=== PATIENT | female | born 1980 | race Hispanic/Latino ===

== ENCOUNTER 2020-08-27 16:03 | Emergency (ER) | payer MEDICAID ==
[2020-08-27] MEDS ORDERED: LACTATED RINGERS 2,000 ML IV ONE (17:33)
--- NOTE | 2020-08-27 17:35 | Emergency Department Report ---
ED General Adult HPI - General Chief complaint: Medical Clearance Stated complaint: im fine, i just want to go home PUI?: No Time Seen by Provider: 08/27/20 17:22 Source: patient, EMS ( EMS documentation not available at time of chart dictation ), RN notes reviewed, old records reviewed Mode of arrival: Stretcher Limitations: No Limitations - History of Present Illness Initial comments: The patient was evaluated in the emergency department for symptoms described in the history of present illness. He/she was evaluated in the context of the global COVID-19 pandemic, which necessitated consideration that the patient might be at risk for infection with the virus that causes COVID-19. Institutional protocols and algorithms that pertain to the evaluation of patients at risk for COVID-19 are in a state of rapid change based on information released by regulatory bodies including the CDC and federal and state organizations. These policies and algorithms were followed during the patient's care in the emergency department. Please note that these policies, procedures and recommendations changed on a rapid basis. The patient is a pleasant 39-year-old female. She is not known to myself previously. She has a history of bipolar, DVT, hypertension, currently on Xarelto, also reportedly has a history of tobacco abuse, cellulitis, facial cellulitis, and phentermine abuse, dental abscess. The patient is recently discharged from [facility], where she was admitted to [facility] for oral maxillofacial surgery intervention, and taken to the operating room for incision and drainage on right submandibular spa ce, as well as extraction of nonrestorable carious tooth #31. She left [place] on August 19. She has had multiple evaluations at the aforementioned hospital, and is currently taking Keflex, and clindamycin. She was discharged from her medical facility on a 1012, and was going to a local psychiatric facility, where she was diverted because of reported low blood pressure. The patient herself tells me that she is thirsty. She denies headache, neck pain, chest pain, abdominal pain, shortness of breath. She tells me that she is not homicidal suicidal. She has mild postoperative pain over her surgical site. She tells me that she was sent here "because of low blood pressure." She has chronic shoulder pain which is not a new, worsened or different over the past few months, but otherwise denies additional injuries and acute complaints. She states she would like to be taken off of her 1013, and sent home. The patient is asking for apple juice currently. Includes medications include Abilify, aspirin, Keflex, clindamycin, metoprolol, Flagyl, and Xarelto. -: This afternoon Radiation: other Quality: other Consistency: other Improves with: other Worsens with: other Associated Symptoms: other - Related Data Home Medications Medication Instructions Recorded Confirmed Last Taken ARIPiprazole [Abilify] 20 mg PO QDAY 08/28/20 08/28/20 Unknown Aspirin [Adult Aspirin] 81 mg PO QDAY 08/28/20 08/28/20 Unknown Metoprolol Tartrate 25 mg PO BID 08/28/20 08/28/20 Unknown cephALEXin [Keflex] 500 mg PO QID 08/28/20 08/28/20 Unknown clindamycin HCL [Clindamycin HCl] 300 mg PO TID 08/28/20 08/28/20 Unknown clonazePAM [Klonopin] 1 mg PO TID 08/28/20 08/28/20 Unknown metroNIDAZOLE [Flagyl] 500 mg PO Q8HR 08/28/20 08/28/20 Unknown Previous Rx's Medication Instructions Recorded Last Taken Type Aspirin [Adult Aspirin] 81 mg PO QDAY #30 tablet. 08/28/20 Unknown Rx Clindamycin [Clindamycin CAP] 300 mg PO Q8H #4 cap 08/28/20 Unknown Rx Rivaroxaban [Xarelto] 10 mg PO QDAY #30 tab 08/28/20 Unknown Rx metroNIDAZOLE [Flagyl] 500 mg PO Q8HR #4 tablet 08/28/20 Unknown Rx Allergies Allergy/AdvReac Type Severity Reaction Status Date / Time azithromycin AdvReac Unknown Verified 08/27/20 18:29 Penicillins AdvReac Unknown Verified 08/27/20 18:29 Sulfa (Sulfonamide AdvReac Unknown Verified 08/27/20 18:29 Antibiotics) ED Review of Systems ROS: Stated complaint: LBP Other details as noted in HPI Constitutional: other (Denies loss of taste and smell). denies: fever Eyes: denies: eye discharge ENT: dental pain (Chronic dental pain) Respiratory: denies: cough, shortness of breath Cardiovascular: denies: chest pain Gastrointestinal: denies: abdominal pain Genitourinary: denies: dysuria Musculoskeletal: arthralgia (Chronic right-sided shoulder pain) Neurological: denies: headache Psychiatric: denies: auditory hallucinations, visual hallucinations, homicidal thoughts, suicidal thoughts ED Past Medical Hx - Past Medical History Previous Medical History?: Yes Hx Hypertension: Yes - Social History Smoking Status: Current Every Day Smoker Substance Use Type: None - Medications Home Medications: Home Medications Medication Instructions Recorded Confirmed Last Taken Type ARIPiprazole [Abilify] 20 mg PO QDAY 08/28/20 08/28/20 Unknown History Aspirin [Adult Aspirin] 81 mg PO QDAY 08/28/20 08/28/20 Unknown History Aspirin [Adult Aspirin] 81 mg PO QDAY #30 tablet.dr 08/28/20 Unknown Rx Clindamycin [Clindamycin CAP] 300 mg PO Q8H #4 cap 08/28/20 Unknown Rx Metoprolol Tartrate 25 mg PO BID 08/28/20 08/28/20 Unknown History Rivaroxaban [Xarelto] 10 mg PO QDAY #30 tab 08/28/20 Unknown Rx cephALEXin [Keflex] 500 mg PO QID 08/28/20 08/28/20 Unknown History clindamycin HCL [Clindamycin HCl] 300 mg PO TID 08/28/20 08/28/20 Unknown History clonazePAM [Klonopin] 1 mg PO TID 08/28/20 08/28/20 Unknown History metroNIDAZOLE [Flagyl] 500 mg PO Q8HR 08/28/20 08/28/20 Unknown History metroNIDAZOLE [Flagyl] 500 mg PO Q8HR #4 tablet 08/28/20 Unknown Rx ED Physical Exam - General Limitations: No Limitations General appearance: alert, anxious - Head Head exam: Present: atraumatic, normocephalic - Eye Eye exam: Present: normal appearance, EOMI. Absent: nystagmus - ENT ENT exam: Present: mucous membranes dry, normal external ear exam, other (Patient has poor dentition. There is no stridor. There is no dysphonia. Intraoral surgical site shows no significant redness, pus, streaking, discharge. There is no elevation of the base of the tongue.) - Neck Neck exam: Present: normal inspection, full ROM, other (External postsurgical site appears to be clean, without significant redness, pus or streaking). A bsent: meningismus - Respiratory Respiratory exam: Present: normal lung sounds bilaterally. Absent: respiratory distress, wheezes, rales, rhonchi, stridor, decreased breath sounds - Cardiovascular Cardiovascular Exam: Present: regular rate, normal rhythm, normal heart sounds. Absent: bradycardia, tachycardia, irregular rhythm, systolic murmur, diastolic murmur, rubs, gallop - GI/Abdominal GI/Abdominal exam: Present: soft. Absent: distended, tenderness, guarding, rebound, rigid, pulsatile mass - Extremities Exam Extremities exam: Present: full ROM, other (2+ pulses noted in the bilateral upper and lower extremities. There is no palpable cord. negative Homans sign. Muscular compartments are soft. The pelvis is stable.). Absent: normal inspection (Numerous healed scar castle on upper extremities.), pedal edema, calf tenderness - Back Exam Back exam: Present: normal inspection, full ROM. Absent: tenderness, CVA tenderness (R), CVA tenderness (L), paraspinal tenderness, vertebral tenderness - Neurological Exam Neurological exam: Present: alert, oriented X3, other (No facial droop. Tongue midline. Extraocular movements intact bilaterally. Facial sensation intact to light touch in V1, V2, V3 distribution bilaterally. 5 and a 5 strength in 4 extremities. Sensation intact to light touch in 4 extremities.). Absent: motor sensory deficit - Psychiatric Psychiatric exam: Present: anxious. Absent: homicidal ideation, suicidal ideation - Skin Skin exam: Present: warm, dry, intact, normal color. Absent: rash ED Course Vital Signs 08/27/20 08/27/20 08/27/20 16:24 18:15 18:20 Temperature 98.0 F Pulse Rate 67 Respiratory 17 17 Rate Blood Pressure 93/64 Blood Pressure 128/78 [Right] O2 Sat by Pulse 99 99 Oximetry 08/27/20 08/27/20 08/27/20 19:00 20:20 20:22 Temperature Pulse Rate Respiratory Rate Blood Pressure 90/57 110/76 Blood Pressure 115/74 [Right] O2 Sat by Pulse 100 100 Oximetry 08/28/20 00:10 Temperature 97.6 F Pulse Rate 75 Respiratory 18 Rate Blood Pressure Blood Pressure 103/66 [Right] O2 Sat by Pulse 100 Oximetry - Reevaluation(s) Reevaluation #1: 08/28/20 13:16 Patient does not meet criteria for 1013 hold or involuntary hold. She remains awake, alert, oriented, sober and exhibits decision-making capacity. She is seen by our mental health counselor, who agrees with plan of care. Patient may be discharged medically, and from a psychiatric perspective. If patient would like to seek voluntary evaluation at her local psychiatric facil ities, she may do so. I will defer to her outpatient primary care doctor and/or psychiatrist to pre scribe her Abilify. She can continue aspirin, which I will prescribe, Keflex prescription ended on August 23, clindamycin ends tomorrow, will defer to outpatient primary care to prescribe Klonopin, as well as lactobacillus, Flagyl prescription ends tomorrow, and we will continue Xarelto. Patient states that she wants to go home, and her significant other is here to take her home. 08/28/20 13:17 ED Medical Decision Making - Lab Data Result diagrams: 08/27/20 17:41 08/27/20 17:41 Vital Signs 08/27/20 08/27/20 08/27/20 16:24 18:15 18:20 Temperature 98.0 F Pulse Rate 67 Respiratory 17 17 Rate Blood Pressure 93/64 Blood Pressure 128/78 [Right] O2 Sat by Pulse 99 99 Oximetry Lab Results 08/27/20 08/27/20 08/27/20 Range/Units 17:41 17:41 17:41 WBC 13.8 H (4.5-11.0) K/mm3 RBC 4.07 (3.65-5.03) M/mm3 Hgb 9.1 L (10.1-14.3) gm/dl Hct 29.7 L (30.3-42.9) % MCV 73 L (79-97) fl MCH 22 L (28-32) pg MCHC 31 (30-34) % RDW 16.9 H (13.2-15.2) % Plt Count 356 (140-440) K/mm3 PT (12.2-14.9) Sec. INR (0.87-1.13) Sodium 140 (137-145) mmol/L Potassium 3.7 (3.6-5.0) mmol/L Chloride 106.1 (98-107) mmol/L Carbon Dioxide 25 (22-30) mmol/L Anion Gap 13 mmol/L BUN 6 L (7-17) mg/dL Creatinine 0.7 (0.6-1.2) mg/dL Estimated GFR > 60 ml/min BUN/Creatinine Ratio 9 % Glucose 97 (65-100) mg/dL Calcium 8.5 (8.4-10.2) mg/dL Magnesium 1.80 (1.7-2.3) mg/dL Total Bilirubin < 0.20 (0.1-1.2) mg/dL AST 9 (5-40) units/L ALT < 5 L (7-56) units/L Alkaline Phosphatase 53 (35-129) units/L Total Creatine Kinase 16 L (30-135) units/L Total Protein 6.3 (6.3-8.2) g/dL Albumin 3.8 L (3.9-5) g/dL Albumin/Globulin Ratio 1.5 % TSH 4.540 H (0.270-4.200) mlU/mL HCG, Quant (0-4) mIU/mL Salicylates (2.8-20.0) mg/dL Acetaminophen (10.0-30.0) ug/mL Plasma/Serum Alcohol (0-0.07) % 08/27/20 08/27/20 08/27/20 Range/Units 17:41 17:41 17:41 WBC (4.5-11.0) K/mm3 RBC (3.65-5.03) M/mm3 Hgb (10.1-14.3) gm/dl Hct (30.3-42.9) % MCV (79-97) fl MCH (28-32) pg MCHC (30-34) % RDW (13.2-15.2) % Plt Count (140-440) K/mm3 PT (12.2-14.9) Sec. INR (0.87-1.13) Sodium (137-145) mmol/L Potassium (3.6-5.0) mmol/L Chloride (98-107) mmol/L Carbon Dioxide (22-30) mmol/L Anion Gap mmol/L BUN (7-17) mg/dL Creatinine (0.6-1.2) mg/dL Estimated GFR ml/min BUN/Creatinine Ratio % Glucose (65-100) mg/dL Calcium (8.4-10.2) mg/dL Magnesium (1.7-2.3) mg/dL Total Bilirubin (0.1-1.2) mg/dL AST (5-40) units/L ALT (7-56) units/L Alkaline Phosphatase (35-129) units/L Total Creatine Kinase (30-135) units/L Total Protein (6.3-8.2) g/dL Albumin (3.9-5) g/dL Albumin/Globulin Ratio % TSH (0.270-4.200) mlU/mL HCG, Quant < 2 (0-4) mIU/mL Salicylates < 0.3 L (2.8-20.0) mg/dL Acetaminophen 5.0 L (10.0-30.0) ug/mL Plasma/Serum Alcohol (0-0.07) % 08/27/20 08/27/20 Range/Units 17:41 17:41 WBC (4.5-11.0) K/mm3 RBC (3.65-5.03) M/mm3 Hgb (10.1-14.3) gm/dl Hct (30.3-42.9) % MCV (79-97) fl MCH (28-32) pg MCHC (30-34) % RDW (13.2-15.2) % Plt Count (140-440) K/mm3 PT 14.0 (12.2-14.9) Sec. INR 1.09 (0.87-1.13) Sodium (137-145) mmol/L Potassium (3.6-5.0) mmol/L Chloride (98-107) mmol/L Carbon Dioxide (22-30) mmol/L Anion Gap mmol/L BUN (7-17) mg/dL Creatinine (0.6-1.2) mg/dL Estimated GFR ml/min BUN/Creatinine Ratio % Glucose (65-100) mg/dL Calcium (8.4-10.2) mg/dL Magnesium (1.7-2.3) mg/dL Total Bilirubin (0.1-1.2) mg/dL AST (5-40) units/L ALT (7-56) units/L Alkaline Phosphatase (35-129) units/L Total Creatine Kinase (30-135) units/L Total Protein (6.3-8.2) g/dL Albumin (3.9-5) g/dL Albumin/Globulin Ratio % TSH (0.270-4.200) mlU/mL HCG, Quant (0-4) mIU/mL Salicylates (2.8-20.0) mg/dL Acetaminophen (10.0-30.0) ug/mL Plasma/Serum Alcohol < 0.01 (0-0.07) % - EKG Data -: EKG Interpreted by Co EKG shows normal: sinus rhythm Rate: normal - EKG Data 08/27/20 18:55 Sinus rhythm, 66 bpm. Normal axis, QTC 418 ms, incomplete right bundle branch block. This EKG is not a STEMI. There is no prior for interpretation. EKG interpreted at 18: 31 - Radiology Data Radiology results: report reviewed CT scan report from previous institution reviewed and appreciated. CT scans performed on August 17, August 13 respectively. - Medical Decision Making Differential diagnosis, including but not limited to: Instrument error, dehydration, general medical examination Assessment and plan: 39-year-old female who was recently discharged from another hospital, who is currently being transported to a local psychiatric facility on a 1013, sent here by the psychiatric facility with a report of low blood pressure. Manual blood pressure 128/78. Patient has a GCS of 15, tolerating liquid feeds, protecting her airway, without stridor, he does not appear to be in any significant distress. Her postoperative sites appear to be healing well. Laboratory studies unremarkable, elevated TSH abnormality reviewed and appreciated, this can be followed up as an outpatient. Patient denies hematemesis, bright red blood per rectum, and vaginal bleeding. Appears to have mild microcytic anemia. She can temporarily discontinue metoprolol, start iron sulfate supplementation, at this point time, patient does not appear to have an immediate medical contraindication that would preclude discharge back to her psychiatric facility. In addition, I personally gave the patient apple juice, which she was able to drink without difficulty. Elevated TSH nonspecific, patient does not appear to be presenting with acute hypothyroidism, defer to outpatient primary care doctor to further follow this up. Patient's leukocytosis reviewed and appreciated, suspect that this is a stress reaction. Patient denies active bleeding at this time. Blood pressure acceptable at this time. Critical care attestation.: If time is entered above; I have spent that time in minutes in the direct care of this critically ill patient, excluding procedure time. ED Disposition Clinical Impression: Microcytic anemia, General medical exam, History of hypotension, Elevated TSH, Medical clearance for psychiatric admission Disposition: DC-01 TO HOME OR SELFCARE Is pt being admited?: No Does the pt Need Aspirin: No Condition: Good Instructions: Hypothyroidism, Iron-Rich Diet Additional Instructions: Patient had a manual blood pressure taken in the ER, of 128/78. At the moment, patient does not appear to have an immediate medical contraindication to psychiatric admission, evaluation, consultation and placement. We recommend that if the patient has an abnormally low or abnormally high blood pressure in the future, that a manual blood pressure retaken, to confirm that there is no instrument error. We recommend that the patient discontinue metoprolol, but she may continue her additional medications. We recommend that the patient follow-up with a general medical doctor or primary care doctor within the next week. Patient may take the iron sulfate supplementation as directed. This medication may cause cramping, constipation, and black stool. Patient's laboratory studies today demonstrated no emergent condition that would require emergent intervention or hospitalization, but she did have a number of incidental asymptomatic abnormalities which are nonemergent, which should be followed up by a primary care doctor within the next week. Please have your primary care doctor contact the medical records department to obtain copies of laboratory studies. Patient may advance diet as tolerated, recommend that patient avoid Motrin, ibuprofen, Naprosyn, Aleve, and NSAIDs. Please return to the emergency room right away with new pain, worsened pain, migration of pain, projectile vomiting, change in mental status, confusion, vomiting blood, defecating blood, or very heavy menstruation. Please follow-up with patient's oral surgeon as recommended and scheduled on previous discharge paperwork. Pt is going to follow up w/ her current outpatient established mental health providers: ACT team therapist Christie Freedman and outpatient psychiatrist Dr. Craig in [place], [place]. Discussed triggers and coping skills with patient as well as provided the crisis line number . We also recommend that the patient follow-up with her outpatient oral surgeon within the next week. Hold metoprolol for now do not resume Toprol until cleared to resume it by your primary care doctor. Referrals: MAU TRAN MD [Staff Physician] - 3-5 Days [facility] [Provider Group] - 3-5 Days
[2020-08-27 17:49] LABS: Hematocrit 29.7 % (30.3-42.9); Hemoglobin 9.1 gm/dl (10.1-14.3); Mean Corpuscular HGB Conc 31 % (30-34); Mean Corpuscular Volume 73 fl (79-97); Platelet Count 356 K/mm3 (140-440); Red Blood Count 4.07 M/mm3 (3.65-5.03); Red Cell Distribution Width 16.9 % (13.2-15.2)
[2020-08-27 18:00] LABS: INR 1.09 (0.87-1.13)
[2020-08-27 18:20] LABS: Albumin 3.8 g/dL (3.9-5); Blood Urea Nitrogen 6 mg/dL (7-17); Calcium 8.5 mg/dL (8.4-10.2); Hemolysis Index 6
[2020-08-27 18:21] LABS: Alanine Aminotransferase < 5 units/L (7-56); BUN/Creatinine Ratio 9
[2020-08-27] MEDS ORDERED: LORazepam 2 MG/ML VIAL ONE (23:54)
[2020-08-27] MEDS ORDERED: LORazepam 2 MG/ML VIAL IV ONE (23:54)
[2020-08-28 03:03] VITALS: BP 103/66
[2020-08-28] MEDS ORDERED: NON-FORMULARY EACH (Clonazepam [Klonopin] 1 MG Tablet) PO PRN (11:08)
[2020-08-28] MEDS ORDERED: ASPIRIN EC 81 MG TAB PO SCH (12:00)
[2020-08-28] MEDS ORDERED: metroNIDAZOLE 500 MG TAB PO SCH (14:00)
[2020-08-28] MEDS ORDERED: CLINDAMYCIN 300 MG CAP PO SCH (14:00)
[2020-08-28] MEDS ORDERED: cephALEXin 500 MG CAP PO SCH (14:00)
== END 2020-08-28 13:34 | disposition home or self-care (01) ==
LOC: EDSEX → ED 16:03
DX: D50.9 Iron deficiency anemia, unspecified (principal); Z20.822 Contact with and (suspected) exposure to COVID-19; R94.6 Abnormal results of thyroid function studies; Z04.6 Encounter for general psychiatric examination, requested by authority; I10 Essential (primary) hypertension; F17.200 Nicotine dependence, unspecified, uncomplicated; Z79.899 Other long term (current) drug therapy; Z88.0 Allergy status to penicillin; Z88.2 Allergy status to sulfonamides; Z88.1 Allergy status to other antibiotic agents
CPT/HCPCS: 36415; 80053; 82550; 83735; 84443; 84702; 85027; 85610; 93005; 96374; 99285; J2060; U0003; 80320; G0480; J3246